=== PATIENT | female | born 1940 | race Caucasian/White ===

== ENCOUNTER 2018-07-03 09:52 | Inpatient (IN) | payer MEDICARE, OTHER ==
[2018-07-03 10:57] LABS: ADD MAN DIFF? NO
[2018-07-03] MEDS: SODIUM CHLORIDE 0.9% 1L BAG IV* (10:58)
[2018-07-03] MEDS: CEFEPIME 2GM/50 ML (PMX) 50 ML IVPB (10:58)
[2018-07-03 10:59] LABS: WHITE BLOOD COUNT 13.6 10^3/ul (4.8-10.8)
[2018-07-03 10:59] LABS: BASOPHILS % 0.3 % (0.0-2.0); EOSINOPHILS % 0.1 % (0.0-7.0); HEMATOCRIT 38.7 % (37.0-47.0); HEMOGLOBIN 12.6 g/dl (12.0-16.0); LYMPHOCYTES # 0.7 10^3/ul (0.8-2.9); LYMPHOCYTES % 5.2 % (15.0-51.0); MEAN CORPUSCULAR HEMOGLOBIN 32.3 pg (29.0-33.0); MEAN CORPUSCULAR HGB CONC 32.6 g/dl (32.0-37.0); MEAN CORPUSCULAR VOLUME 99.2 fl (82.0-101.0); MEAN PLATELET VOLUME 11.5 fl (7.4-10.4); MONOCYTE # 0.7 10^3/ul (0.3-0.9); MONOCYTES % 4.8 % (0.0-11.0); NEUTROPHIL # 12.1 10^3/ul (1.6-7.5); NEUTROPHILS % 89.2 % (39.0-77.0); PLATELET COUNT 231 10^3/UL (140-415)
[2018-07-03] MEDS: METHYLPREDNISOLONE 125 MG INJ IV (11:10)
[2018-07-03] MEDS ORDERED: ONDANSETRON 4 MG INJ IV ×2 (11:30→15:00)
[2018-07-03 11:35] LABS: ALANINE AMINOTRANSFERASE 17 IU/L (13-69); ALBUMIN 4.2 g/dl (3.3-4.9); ALBUMIN/GLOBULIN RATIO 1.05; ALKALINE PHOSPHATASE 52 IU/L (42-121); AMYLASE 87 U/L (11-123); ANION GAP 13 (5-13); ASPARTATE AMINO TRANSFERASE 23 IU/L (15-46); BILIRUBIN,INDIRECT 0.6 mg/dl (0-1.1); BILIRUBIN,TOTAL 0.6 mg/dl (0.2-1.3); BLOOD UREA NITROGEN 21 mg/dl (7-20); CALCIUM 8.4 mg/dl (8.4-10.2); CARBON DIOXIDE 26 mmol/L (21-31); CHLORIDE 102 mmol/L (97-110); CREATININE 0.96 mg/dl (0.44-1.00); GLUCOSE 117 mg/dl (70-220); LIPASE 39 U/L (23-300); POTASSIUM 3.3 mmol/L (3.5-5.1); SODIUM 141 mmol/L (135-144); TOTAL PROTEIN 8.2 g/dl (6.1-8.1)
[2018-07-03 11:44] LABS: INR 1.05; PROTIME 13.8 Sec (11.9-14.9); PT RATIO 1.1
[2018-07-03 11:45] LABS: PARTIAL THROMBOPLASTIN TIME 28.8 Sec (23.0-35.0)
[2018-07-03 11:46] LABS: TROPONIN-I < 0.012 ng/ml (0.000-0.120)
[2018-07-03] MEDS: VANCOMYCIN 1 GM (PMX) 250 ML IVPB (12:06)
[2018-07-03] MEDS: ALBUTEROL 0.5% (NEB) 2.5 MG/0.5 ML AMP INH (12:56)
[2018-07-03] MEDS: IPRATROPIUM (NEB) 0.5 MG/2.5 ML AMP INH (12:56)
[2018-07-03 14:31] LABS: IRON 45 ug/dl (35-150)
[2018-07-03 14:41] LABS: % IRON SATURATION 14 % SAT (22-52); TOTAL IRON BINDING CAPACITY 316 ug/dl (241-421)
[2018-07-03] MEDS ORDERED: VANCOMYCIN 1.25 GM in SOD CHLORIDE 0.9% 250 ML IVPB (15:00)
[2018-07-03] MEDS: PIPER-TAZO 3.375 GM IV (PMX) 100 ML IVPB ×2 (15:47→22:21)
[2018-07-03 15:58] LABS: LACTIC ACID 2.4 mmol/L (0.5-2.0)
[2018-07-03] MEDS ORDERED: NITROGLYCERIN (SL) 0.4 MG TAB SL (16:00)
[2018-07-03] MEDS ORDERED: IBUPROFEN 600 MG TAB PO (16:00)
[2018-07-03] MEDS: CHOLECALCIFEROL 2,000 UNIT CAP PO (16:00)
[2018-07-03] MEDS: GABAPENTIN 400 MG CAP PO ×2 (16:35→21:00)
[2018-07-03] MEDS: ASPIRIN (EC) 81 MG TAB PO (16:35)
[2018-07-03] MEDS: AMLODIPINE 10 MG TAB PO (16:36)
[2018-07-03] MEDS: POTASSIUM CHLORIDE (SR) 20 MEQ TAB PO (16:37)
[2018-07-03] MEDS: MAGNESIUM SULFATE 2 GM/50 ML 50 ML IVPB (19:59)
[2018-07-03] MEDS: IPRATROPIUM (NEB) 0.5 MG/2.5 ML AMP HHN (20:41)
[2018-07-03] MEDS: ALBUTEROL 0.083% (NEB) 2.5 MG/3 ML AMP HHN (20:41)
[2018-07-03] MEDS: METOPROLOL 25 MG TAB PO (20:59)
[2018-07-03] MEDS: QUETIAPINE 100 MG TAB PO (20:59)
[2018-07-03] MEDS: DIAZEPAM 5 MG TAB PO (20:59)
[2018-07-03] MEDS ORDERED: VANCOMYCIN IV PER PHARMACY XX (21:30)
[2018-07-04] MEDS: ALBUTEROL 0.083% (NEB) 2.5 MG/3 ML AMP HHN ×4 (01:48→20:10)
[2018-07-04] MEDS: IPRATROPIUM (NEB) 0.5 MG/2.5 ML AMP HHN ×4 (01:48→20:10)
[2018-07-04] MEDS: PIPER-TAZO 3.375 GM IV (PMX) 100 ML IVPB ×3 (05:54→21:17)
[2018-07-04] MEDS: LEVOTHYROXINE 125 MCG TAB PO (07:00)
[2018-07-04] MEDS: PANTOPRAZOLE (EC) 40 MG TAB PO (07:25)
[2018-07-04] MEDS: AMLODIPINE 10 MG TAB PO (08:27)
[2018-07-04] MEDS: ASPIRIN (EC) 81 MG TAB PO (08:27)
[2018-07-04] MEDS: CHOLECALCIFEROL 2,000 UNIT CAP PO (08:27)
[2018-07-04] MEDS: GABAPENTIN 400 MG CAP PO ×4 (08:28→21:16)
[2018-07-04] MEDS: METOPROLOL 25 MG TAB PO ×2 (08:28→21:17)
[2018-07-04] MEDS: DIAZEPAM 5 MG TAB PO ×2 (08:30→21:16)
[2018-07-04] MEDS: MAGNESIUM SULFATE 2 GM/50 ML 50 ML IVPB (08:31)
[2018-07-04] MEDS ORDERED: METHYLPREDNISOLONE 40 MG INJ IV (09:00)
[2018-07-04 09:12] LABS: ADD MAN DIFF? NO
[2018-07-04 09:18] LABS: WHITE BLOOD COUNT 20.5 10^3/ul (4.8-10.8)
[2018-07-04 09:18] LABS: BASOPHILS % 0.1 % (0.0-2.0); HEMATOCRIT 35.3 % (37.0-47.0); HEMOGLOBIN 11.3 g/dl (12.0-16.0); LYMPHOCYTES # 1.3 10^3/ul (0.8-2.9); LYMPHOCYTES % 6.1 % (15.0-51.0); MEAN CORPUSCULAR HEMOGLOBIN 32.3 pg (29.0-33.0); MEAN CORPUSCULAR VOLUME 100.9 fl (82.0-101.0); MEAN PLATELET VOLUME 12.2 fl (7.4-10.4); MONOCYTE # 0.7 10^3/ul (0.3-0.9); MONOCYTES % 3.5 % (0.0-11.0); NEUTROPHIL # 18.3 10^3/ul (1.6-7.5); NEUTROPHILS % 89.2 % (39.0-77.0); PLATELET COUNT 183 10^3/UL (140-415); RED CELL DISTRIBUTION WIDTH 13.2 % (11.5-14.5)
[2018-07-04 09:32] LABS: ALANINE AMINOTRANSFERASE 14 IU/L (13-69); ALBUMIN 3.7 g/dl (3.3-4.9); ALKALINE PHOSPHATASE 37 IU/L (42-121); ANION GAP 9 (5-13); ASPARTATE AMINO TRANSFERASE 15 IU/L (15-46); BILIRUBIN,INDIRECT 0.6 mg/dl (0-1.1); BILIRUBIN,TOTAL 0.6 mg/dl (0.2-1.3); BLOOD UREA NITROGEN 21 mg/dl (7-20); CALCIUM 8.1 mg/dl (8.4-10.2); CARBON DIOXIDE 29 mmol/L (21-31); CHLORIDE 105 mmol/L (97-110); GLUCOSE 121 mg/dl (70-220); POTASSIUM 3.6 mmol/L (3.5-5.1); SODIUM 143 mmol/L (135-144); TOTAL PROTEIN 7.4 g/dl (6.1-8.1)
[2018-07-04] MEDS: VANCOMYCIN 1.25 GM in SOD CHLORIDE 0.9% 250 ML IVPB (10:27)
[2018-07-04] MEDS: METHYLPREDNISOLONE 125 MG INJ IV (14:31)
[2018-07-04] MEDS ORDERED: LORAZEPAM 1 MG TAB PO (20:30)
[2018-07-04] MEDS ORDERED: ZOLPIDEM 5 MG TAB PO (20:30)
[2018-07-04] MEDS: QUETIAPINE 100 MG TAB PO (21:16)
[2018-07-04] MEDS: ZOLPIDEM 5 MG TAB PO (22:13)
[2018-07-05] MEDS: ALBUTEROL 0.083% (NEB) 2.5 MG/3 ML AMP HHN ×4 (01:11→21:00)
[2018-07-05] MEDS: IPRATROPIUM (NEB) 0.5 MG/2.5 ML AMP HHN ×4 (01:11→21:00)
[2018-07-05] MEDS: PIPER-TAZO 3.375 GM IV (PMX) 100 ML IVPB ×3 (05:59→22:48)
[2018-07-05] MEDS: LEVOTHYROXINE 125 MCG TAB PO (06:39)
[2018-07-05 06:51] LABS: ALANINE AMINOTRANSFERASE 21 IU/L (13-69); ALBUMIN 3.5 g/dl (3.3-4.9); ALBUMIN/GLOBULIN RATIO 0.97; ALKALINE PHOSPHATASE 52 IU/L (42-121); ANION GAP 10 (5-13); ASPARTATE AMINO TRANSFERASE 17 IU/L (15-46); BILIRUBIN,INDIRECT 0.4 mg/dl (0-1.1); BILIRUBIN,TOTAL 0.4 mg/dl (0.2-1.3); BLOOD UREA NITROGEN 24 mg/dl (7-20); CALCIUM 7.7 mg/dl (8.4-10.2); CARBON DIOXIDE 27 mmol/L (21-31); CHLORIDE 106 mmol/L (97-110); CREATININE 0.84 mg/dl (0.44-1.00); GLUCOSE 116 mg/dl (70-220); POTASSIUM 4.3 mmol/L (3.5-5.1); SODIUM 143 mmol/L (135-144); TOTAL PROTEIN 7.1 g/dl (6.1-8.1)
[2018-07-05] MEDS: GABAPENTIN 400 MG CAP PO ×4 (08:43→20:55)
[2018-07-05] MEDS: DIAZEPAM 5 MG TAB PO ×2 (08:43→20:55)
[2018-07-05] MEDS: PANTOPRAZOLE (EC) 40 MG TAB PO (08:43)
[2018-07-05] MEDS: AMLODIPINE 10 MG TAB PO (08:43)
[2018-07-05] MEDS: ASPIRIN (EC) 81 MG TAB PO (08:43)
[2018-07-05] MEDS: METOPROLOL 25 MG TAB PO ×2 (08:43→20:54)
[2018-07-05] MEDS: CHOLECALCIFEROL 2,000 UNIT CAP PO (08:43)
[2018-07-05] MEDS: MAGNESIUM SULFATE 2 GM/50 ML 50 ML IVPB (11:17)
[2018-07-05] MEDS: VANCOMYCIN 1.25 GM in SOD CHLORIDE 0.9% 250 ML IVPB (13:41)
[2018-07-05 14:12] LABS: ADD UMIC NO; UR ASCORBIC ACID NEGATIVE (NEGATIVE); UR BILIRUBIN (Dip) NEGATIVE (NEGATIVE); UR BLOOD (Dip) NEGATIVE (NEGATIVE); UR CLARITY CLEAR (CLEAR); UR COLOR STRAW (YELLOW); UR GLUCOSE (Dip) NEGATIVE (NEGATIVE); UR KETONES (Dip) NEGATIVE (NEGATIVE); UR LEUKOCYTE ESTERASE (Dip) NEGATIVE Leu/ul (NEGATIVE); UR NITRITE (Dip) NEGATIVE (NEGATIVE); UR SPECIFIC GRAVITY (Dip) 1.011 (1.003-1.030); UR TOTAL PROTEIN (Dip) NEGATIVE (NEGATIVE); UR UROBILINOGEN (Dip) NEGATIVE (NEGATIVE)
[2018-07-05] MEDS: METHYLPREDNISOLONE 40 MG INJ IM (16:18)
[2018-07-05] MEDS: NA PHOSPHATE/BIPHOS 133 ML ENEMA PR (20:53)
[2018-07-05] MEDS: ZOLPIDEM 5 MG TAB PO (20:53)
[2018-07-05] MEDS: QUETIAPINE 100 MG TAB PO (20:54)
[2018-07-05] MEDS: SENNA TAB PO (20:55)
[2018-07-05] MEDS: POLYETHYLENE GLYCOL 17 GM PACKET PO (20:55)
[2018-07-06] MEDS: IPRATROPIUM (NEB) 0.5 MG/2.5 ML AMP HHN ×4 (01:48→20:13)
[2018-07-06] MEDS: ALBUTEROL 0.083% (NEB) 2.5 MG/3 ML AMP HHN ×4 (01:48→20:13)
[2018-07-06] MEDS: PIPER-TAZO 3.375 GM IV (PMX) 100 ML IVPB ×3 (06:08→21:53)
[2018-07-06] MEDS: PANTOPRAZOLE (EC) 40 MG TAB PO (06:27)
[2018-07-06] MEDS: LEVOTHYROXINE 125 MCG TAB PO (06:38)
[2018-07-06 08:19] LABS: ADD MAN DIFF? NO
[2018-07-06 08:21] LABS: BASOPHILS % 0.1 % (0.0-2.0); EOSINOPHILS % 0.1 % (0.0-7.0); HEMATOCRIT 33.6 % (37.0-47.0); HEMOGLOBIN 10.7 g/dl (12.0-16.0); LYMPHOCYTES # 1.8 10^3/ul (0.8-2.9); MEAN CORPUSCULAR HEMOGLOBIN 32.1 pg (29.0-33.0); MEAN CORPUSCULAR HGB CONC 31.8 g/dl (32.0-37.0); MEAN CORPUSCULAR VOLUME 100.9 fl (82.0-101.0); MEAN PLATELET VOLUME 12.2 fl (7.4-10.4); MONOCYTE # 0.6 10^3/ul (0.3-0.9); MONOCYTES % 3.9 % (0.0-11.0); NEUTROPHIL # 12.8 10^3/ul (1.6-7.5); NEUTROPHILS % 83.1 % (39.0-77.0); PLATELET COUNT 217 10^3/UL (140-415); RED BLOOD COUNT 3.33 10^6/ul (4.20-5.40); RED CELL DISTRIBUTION WIDTH 13.2 % (11.5-14.5)
[2018-07-06 08:21] LABS: WHITE BLOOD COUNT 15.4 10^3/ul (4.8-10.8)
[2018-07-06] MEDS: METOPROLOL 25 MG TAB PO ×2 (08:43→21:52)
[2018-07-06] MEDS: GABAPENTIN 400 MG CAP PO ×4 (08:43→21:52)
[2018-07-06] MEDS: AMLODIPINE 10 MG TAB PO (08:45)
[2018-07-06] MEDS: SENNA TAB PO ×2 (08:48→21:53)
[2018-07-06] MEDS: POLYETHYLENE GLYCOL 17 GM PACKET PO ×2 (08:48→21:53)
[2018-07-06] MEDS: ASPIRIN (EC) 81 MG TAB PO (08:49)
[2018-07-06] MEDS: DIAZEPAM 5 MG TAB PO ×2 (08:50→21:53)
[2018-07-06 08:52] LABS: ANION GAP 10 (5-13); BLOOD UREA NITROGEN 25 mg/dl (7-20); CALCIUM 7.9 mg/dl (8.4-10.2); CARBON DIOXIDE 30 mmol/L (21-31); CHLORIDE 104 mmol/L (97-110); CREATININE 0.83 mg/dl (0.44-1.00); GLUCOSE 77 mg/dl (70-220); POTASSIUM 4.5 mmol/L (3.5-5.1); SODIUM 144 mmol/L (135-144)
[2018-07-06] MEDS: MAGNESIUM SULFATE 2 GM/50 ML 50 ML IVPB (08:54)
[2018-07-06 09:54] LABS: VANCOMYCIN,TROUGH 8.3 ug/ml (10.0-20.0)
[2018-07-06] MEDS: CHOLECALCIFEROL 2,000 UNIT CAP PO (09:57)
[2018-07-06] MEDS: VANCOMYCIN 1.25 GM in SOD CHLORIDE 0.9% 250 ML IVPB (10:32)
[2018-07-06] MEDS: METHYLPREDNISOLONE 40 MG INJ IV (16:46)
[2018-07-06] MEDS: QUETIAPINE 100 MG TAB PO (21:52)
[2018-07-06] MEDS: ZOLPIDEM 5 MG TAB PO (21:53)
[2018-07-06] MEDS: VANCOMYCIN 750 MG in SOD CHLORIDE 0.9% 150 ML IVPB (23:31)
[2018-07-07] MEDS: IPRATROPIUM (NEB) 0.5 MG/2.5 ML AMP HHN ×4 (01:50→19:57)
[2018-07-07] MEDS: ALBUTEROL 0.083% (NEB) 2.5 MG/3 ML AMP HHN ×4 (01:51→19:57)
[2018-07-07] MEDS: PIPER-TAZO 3.375 GM IV (PMX) 100 ML IVPB ×3 (06:28→21:02)
[2018-07-07] MEDS: LEVOTHYROXINE 125 MCG TAB PO (06:29)
[2018-07-07] MEDS: PANTOPRAZOLE (EC) 40 MG TAB PO (08:12)
[2018-07-07] MEDS: ASPIRIN (EC) 81 MG TAB PO (08:12)
[2018-07-07] MEDS: SENNA TAB PO ×2 (08:13→21:00)
[2018-07-07] MEDS: POLYETHYLENE GLYCOL 17 GM PACKET PO ×2 (08:13→21:00)
[2018-07-07] MEDS: METOPROLOL 25 MG TAB PO ×2 (08:13→21:00)
[2018-07-07] MEDS: CHOLECALCIFEROL 2,000 UNIT CAP PO (08:14)
[2018-07-07] MEDS: DIAZEPAM 5 MG TAB PO ×2 (08:14→21:00)
[2018-07-07] MEDS: AMLODIPINE 10 MG TAB PO (08:14)
[2018-07-07] MEDS: GABAPENTIN 400 MG CAP PO ×4 (08:14→21:00)
[2018-07-07] MEDS: VANCOMYCIN 750 MG in SOD CHLORIDE 0.9% 150 ML IVPB ×2 (10:49→22:42)
[2018-07-07] MEDS: QUETIAPINE 100 MG TAB PO (21:00)
[2018-07-07] MEDS: ZOLPIDEM 5 MG TAB PO (21:00)
[2018-07-07] MEDS: METHYLPREDNISOLONE 125 MG INJ IV (22:41)
[2018-07-08] MEDS: IPRATROPIUM (NEB) 0.5 MG/2.5 ML AMP HHN ×4 (01:57→19:54)
[2018-07-08] MEDS: ALBUTEROL 0.083% (NEB) 2.5 MG/3 ML AMP HHN ×4 (01:57→19:54)
[2018-07-08] MEDS: LEVOTHYROXINE 125 MCG TAB PO (07:26)
[2018-07-08] MEDS: PIPER-TAZO 3.375 GM IV (PMX) 100 ML IVPB ×3 (07:26→22:36)
[2018-07-08] MEDS: METHYLPREDNISOLONE 40 MG INJ IV (08:31)
[2018-07-08] MEDS: PANTOPRAZOLE (EC) 40 MG TAB PO (08:33)
[2018-07-08] MEDS: ASPIRIN (EC) 81 MG TAB PO (08:33)
[2018-07-08] MEDS: CHOLECALCIFEROL 2,000 UNIT CAP PO (08:33)
[2018-07-08] MEDS: SENNA TAB PO ×2 (08:34→20:34)
[2018-07-08] MEDS: GABAPENTIN 400 MG CAP PO ×4 (08:34→20:34)
[2018-07-08] MEDS: DIAZEPAM 5 MG TAB PO ×2 (08:34→20:35)
[2018-07-08] MEDS: METOPROLOL 25 MG TAB PO ×3 (08:34→20:34)
[2018-07-08] MEDS: AMLODIPINE 10 MG TAB PO (08:35)
[2018-07-08] MEDS: POLYETHYLENE GLYCOL 17 GM PACKET PO ×2 (08:35→20:33)
[2018-07-08 10:34] LABS: BLOOD UREA NITROGEN 25 mg/dl (7-20)
[2018-07-08 10:34] LABS: CREATININE 0.85 mg/dl (0.44-1.00)
[2018-07-08 10:38] LABS: VANCOMYCIN,TROUGH 12.6 ug/ml (10.0-20.0)
[2018-07-08] MEDS: VANCOMYCIN 750 MG in SOD CHLORIDE 0.9% 150 ML IVPB ×2 (11:33→22:39)
[2018-07-08] MEDS: QUETIAPINE 100 MG TAB PO (20:34)
[2018-07-08] MEDS: ZOLPIDEM 5 MG TAB PO (20:35)
[2018-07-08] MEDS: HYDROCODONE/APAP (5/325) TAB PO (20:58)
[2018-07-09] MEDS: IPRATROPIUM (NEB) 0.5 MG/2.5 ML AMP HHN ×2 (01:57→08:01)
[2018-07-09] MEDS: ALBUTEROL 0.083% (NEB) 2.5 MG/3 ML AMP HHN ×2 (01:57→08:01)
[2018-07-09] MEDS: PIPER-TAZO 3.375 GM IV (PMX) 100 ML IVPB (06:36)
[2018-07-09] MEDS: PANTOPRAZOLE (EC) 40 MG TAB PO (06:37)
[2018-07-09] MEDS: LEVOTHYROXINE 125 MCG TAB PO (06:42)
[2018-07-09] MEDS: GABAPENTIN 400 MG CAP PO ×2 (08:16→12:11)
[2018-07-09] MEDS: ASPIRIN (EC) 81 MG TAB PO (08:16)
[2018-07-09] MEDS: CHOLECALCIFEROL 2,000 UNIT CAP PO (08:17)
[2018-07-09] MEDS: SENNA TAB PO (08:17)
[2018-07-09] MEDS: METOPROLOL 25 MG TAB PO (08:17)
[2018-07-09] MEDS: AMLODIPINE 10 MG TAB PO (08:17)
[2018-07-09] MEDS: DIAZEPAM 5 MG TAB PO (08:17)
[2018-07-09] MEDS: METHYLPREDNISOLONE 40 MG INJ IV (08:19)
[2018-07-09] MEDS: POLYETHYLENE GLYCOL 17 GM PACKET PO (08:23)
[2018-07-09] MEDS: VANCOMYCIN 750 MG in SOD CHLORIDE 0.9% 150 ML IVPB (12:11)
== END 2018-07-09 14:30 | disposition home health service (06) | DRG 190 ==
LOC: E/R 09:52 → TEL 11:05
DX: J44.1 Chronic obstructive pulmonary disease with (acute) exacerbation (principal); J18.9 Pneumonia, unspecified organism; J96.21 Acute and chronic respiratory failure with hypoxia; J98.11 Atelectasis; F19.20 Other psychoactive substance dependence, uncomplicated; F13.20 Sedative, hypnotic or anxiolytic dependence, uncomplicated; D64.9 Anemia, unspecified; D72.829 Elevated white blood cell count, unspecified; E87.6 Hypokalemia; E89.0 Postprocedural hypothyroidism; F17.200 Nicotine dependence, unspecified, uncomplicated; F32.9 Major depressive disorder, single episode, unspecified; G47.00 Insomnia, unspecified; H90.5 Unspecified sensorineural hearing loss; I10 Essential (primary) hypertension; K21.9 Gastro-esophageal reflux disease without esophagitis; L40.9 Psoriasis, unspecified; M81.0 Age-related osteoporosis without current pathological fracture; M19.90 Unspecified osteoarthritis, unspecified site; R13.10 Dysphagia, unspecified; R29.6 Repeated falls; Z99.81 Dependence on supplemental oxygen; Z87.440 Personal history of urinary (tract) infections
CPT/HCPCS: 36415; 71045; 71046; 71250; 72040; 72072; 72100; 80048; 80053; 80202; 81003; 82150; 82565; 83540; 83605; 83690; 83735; 84443; 84484; 84520; 85025; 85610; 85730; 87040; 87086; 93005; 94640; 94644; 94664; 96374; 99291-25